=== PATIENT | male | born 1925 | race Caucasian/White ===

== ENCOUNTER 2016-12-11 09:47 | Outpatient (CLI) | payer MEDICARE, MEDICAID ==
[2016-12-11] MEDS ORDERED: NACL ONE (10:12)
--- NOTE | 2016-12-11 11:22 | Cat Scan Report ---
CT CHEST WITHOUT AND WITH CONTRAST: HISTORY: Lung mass, swelling. TECHNIQUE: Helical CT following IV contrast. Sagittal and coronal reformatted images. FINDINGS: No comparison at this facility. There is a complex necrotic appearing mass in the right lower lobe measuring 8.3 x 6.0 x 6.0 cm. 2 or 3 mildly enlarged lymph nodes in the right hilar chain measure up to 2 cm. 3 smaller lymph nodes in the aorticopulmonary window measures 1.3 cm. There is a small layering right pleural effusion. The remainder of the lungs are clear although minimal emphysematous changes are suspected. No pneumothorax. Heart size is within normal limits. No pericardial effusion. The mediastinal vessels are patent. 1 cm right thyroid cyst is noted. The tracheobronchial tree and esophagus are unremarkable. No pericardial effusion. Limited images of the upper abdomen demonstrate a 2 necrotic appearing masses in the right hepatic lobe measuring 2.2 cm and 3.5 cm. There is an indeterminate 1 cm left adrenal nodule. Multiple bilateral renal cysts. The bony structures are mildly demineralized. No suspicious bony lesion is identified. IMPRESSION: A metastatic process is identified. There is a large necrotic appearing mass in the right lower lobe and two visualized liver lesions as described above. Mild mediastinal adenopathy. 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 The right lower lobe mass should be accessible for percutaneous biopsy if needed. The liver lesions are inaccessible. Indeterminate 1 cm left adrenal nodule.
== END 2016-12-11 09:48 | disposition home or self-care (01) ==
LOC: CT 09:47
PROVIDERS: ATTEND Family Medicine
DX: J90 Pleural effusion, not elsewhere classified (principal); R91.8 Other nonspecific abnormal finding of lung field; N28.1 Cyst of kidney, acquired; R59.9 Enlarged lymph nodes, unspecified; E04.1 Nontoxic single thyroid nodule; K76.89 Other specified diseases of liver; E27.8 Other specified disorders of adrenal gland; E11.9 Type 2 diabetes mellitus without complications; I10 Essential (primary) hypertension
CPT/HCPCS: 71270; Q9967

== ENCOUNTER 2016-12-25 06:39 | Day surgery (SDC) | payer MEDICARE ==
[2016-12-25 07:56] LABS: Basophils % (Auto) 0.4 % (0.0-1.8); Eosinophils % (Auto) 1.2 % (0.0-4.3); Hematocrit 43.8 % (35.5-45.6); Hemoglobin 14.7 gm/dl (11.8-15.2); Mean Corpuscular HGB Conc 34 % (32-34); Mean Corpuscular Hemoglobin 28 pg (28-32); Mean Corpuscular Volume 84 fl (84-94); Platelet Count 345 K/mm3 (140-440); Red Blood Count 5.23 M/mm3 (3.65-5.03); Red Cell Distribution Width 14.4 % (13.2-15.2)
[2016-12-25 08:06] LABS: INR 0.96 (0.87-1.13); Partial Thromboplastin Time 31.4 Sec. (24.2-36.6)
[2016-12-25] MEDS ORDERED: SUBLIMAZE IV ONE (08:35)
[2016-12-25] MEDS ORDERED: VERSED IV ONE (08:35)
[2016-12-25 13:31] VITALS: BP 118/65
--- NOTE | 2016-12-26 11:04 | Cat Scan Report ---
CT CHEST WITHOUT CONTRAST: HISTORY: Right lung mass. TECHNIQUE: Helical CT without IV contrast. FINDINGS: This examination was scheduled as a CT-guided biopsy of a right lower lobe lung mass. Informed consent was obtained. The patient had an gifted program teacher present and was given the opportunity to ask questions. The patient was laid in the prone position on the CT table at the beginning of the exam. The patient's heart rate decreased from the 70s to the 30s prior to sedation. At this point, an anesthesia consult was obtained to evaluate the patient. Anesthesia recommended no sedation given the patient's cardiorespiratory status. These findings were discussed with the patient's gifted program teacher who was a family member. A decision was made to not proceed with the biopsy. Helical CT images of the right chest were obtained and again demonstrated a 5.7 cm right lower lobe mass and small right pleural effusion. No new findings are demonstrated since 12/25/16. IMPRESSION: 5.7 cm right lower lobe mass. CT-guided biopsy could not be performed because the patient was not a candidate for moderate sedation. See above.
== END 2016-12-25 10:12 | disposition home or self-care (01) ==
LOC: CATHLABREC 06:39 → EDSTATUS 08:30 → CATHLABREC 10:12
DX: R91.8 Other nonspecific abnormal finding of lung field (principal); Z79.899 Other long term (current) drug therapy; Z79.01 Long term (current) use of anticoagulants
CPT/HCPCS: 36415; 71250; 82962; 85025; 85610; 85730; J2250; J3010; 77012